=== PATIENT | male | born 1950 | race Caucasian/White ===

== ENCOUNTER 2024-07-17 10:53 | Outpatient (CLI) | payer MEDICARE, MEDICAID ==
--- NOTE | 2024-07-17 12:42 | RADIOLOGY REPORT ---
Procedure: CT CT CHEST Reason for study/Clinical History: CHRONIC COUGH,PERSONAL HISTORY OF OTHER SPECIFIED CONDITIONS Comparison Study: NoneNone available at time of dictation. Exam Date: 07/17/2024 11:22 AM TECHNIQUE: Multidetector CT of the chest was performed from the lung apices to the upper abdomen with out the use of intravenous contract. Axial, coronal and sagittal multiplanar reformats were performed . Radiation Dose Information: CT Dose: CTDI volume is 8.8 mGy. Dose-length product is 359 mGy*cm The dose indicators for CT are the volume Computed Tomography (CT) Dose Index (CTDIvol) and the Dose Length Product (DLP), and are measured in units of mGy and mGy-cm, respectively. These indicators are not patient dose, but values generated from the CT scanner acquisition factors. The report includes radiation exposure data for exposures received during this examination. FINDINGS: Lower neck: Normal thyroid. Lungs: No focal consolidation, pleural effusion or pneumothorax. 6 mm pulmonary nodule is seen in the left lower lobe. Heart/Vascular Structures: Normal heart size. No pericardial effusion. Lymph Nodes: No adenopathy Pleura: No pleural effusion or significant pneumothorax. Musculoskeletal: No acute osseous abnormality. Soft tissues: Normal. Upper abdomen: Limited portions of the upper abdomen are unremarkable. IMPRESSION: 1. No acute intrathoracic abnormality. 2. 6 mm pulmonary nodule is seen in the left lower lobe. Recommend follow-up noncontrast chest CT in 3 months. Radiation optimization: All CT scans at this facility use at least one of these dose optimization viral hniques: automated exposure control mA and/or kV adjustment per patient size (includes targeted exam s where dose is matched to clinical indication) or iterative reconstruction.
== END 2024-07-17 23:59 | disposition home or self-care (01) ==
LOC: RAD 10:53
PROVIDERS: ATTEND Nurse Practitioner Family
DX: R91.1 Solitary pulmonary nodule (principal); R09.89 Other specified symptoms and signs involving the circulatory and respiratory systems; R06.02 Shortness of breath; Z87.898 Personal history of other specified conditions; R05.3 Chronic cough; Z77.090 Contact with and (suspected) exposure to asbestos
CPT/HCPCS: 71250

== ENCOUNTER 2024-09-17 13:02 | Outpatient (CLI) | payer MEDICARE, MEDICAID ==
--- NOTE | 2024-09-17 14:27 | RADIOLOGY REPORT ---
EXAM: CT CT CHEST HISTORY: SOLITARY PULMONARY NODULE COMPARISON: CT CT CHEST on DOS: 07/17/24 TECHNIQUE: Helical CT images of the chest were performed without contrast. Sagittal and coronal refor matted images were obtained. This CT exam was performed using one or more of the following dose reduc tion techniques: Automated exposure control, adjustment of the mA and/or kV according to patient size , or use of iterative reconstruction technique. Radiation Dose: CT Dose: CTDI volume is 8.82 mGy. Dos e-length product is 342.36 mGy*cm FINDINGS: Left lower lobe noncalcified pulmonary nodule measures 9.7 mm (image 61, series 2), previou sly measuring 8.[address] scan dated 07/17/2024. No pneumothorax, pulmonary edema, pleural effus ions, or consolidative infiltrates. There is mild central peribronchial thickening. No suspicious med iastinal or axillary adenopathy. The heart is borderline enlarged in part related to pectus excavatum deformity of the lower chest and associated mass effect. No thoracic aortic aneurysm. There is mild bilateral gynecomastia. There is mild thoracic degenerative disc disease. No fractures are identified about the bony thorax. IMPRESSION: 1. 9.7 mm left lower lobe noncalcified pulmonary nodule is slightly larger than that seen on CT scan of the chest dated Recommend follow-up PET-CT for better characterization. 2. No other acute intrathoracic process is identified here. 3. Pectus excavatum deformity of the lower chest.
== END 2024-09-17 23:59 | disposition home or self-care (01) ==
LOC: RAD 13:02
PROVIDERS: ATTEND Nurse Practitioner Family
DX: R91.1 Solitary pulmonary nodule (principal)
CPT/HCPCS: 71250